=== PATIENT | male | born 1995 | race Caucasian/White ===

== ENCOUNTER 2017-07-26 10:42 | Emergency (ER) | payer OTHER ==
[~2017-07-26] VITALS: Ht 180.3 cm; Wt 71.2 kg
[2017-07-26] MEDS ORDERED: NORCO 5-325 TA1 EACH PO (14:37)
== END 2017-07-26 14:44 | disposition home or self-care (01) ==
LOC: ED 10:42
DX: R10.33 Periumbilical pain (principal)
CPT/HCPCS: 76705; 80053; 81001; 83690; 85025; 99284

== ENCOUNTER 2022-02-26 21:09 | Emergency (ER) | payer OTHER ==
[~2022-02-26] VITALS: Ht 180.3 cm; Wt 104.0 kg
[~2022-02-26 21:09] MED LIST: NORCO 5-325 TA1 EACH PO
[2022-02-26] MEDS ORDERED: PAROXETINE HCL20 MG PO (21:30)
[2022-02-26] MEDS ORDERED: ONDANSETRON ODT8 MG PO (22:24)
[2022-02-27] MEDS ORDERED: REGLAN10 MG PO (23:04)
== END 2022-02-26 22:36 | disposition home or self-care (01) ==
LOC: ED 21:09
DX: R10.9 Unspecified abdominal pain (principal); R11.2 Nausea with vomiting, unspecified; Z79.899 Other long term (current) drug therapy
CPT/HCPCS: 74176; 80053; 81001; 83690; 83735; 85025; 99284-25; A9270

== ENCOUNTER 2022-02-27 21:02 | Emergency (ER) | payer OTHER ==
[~2022-02-27] VITALS: Ht 180.3 cm; Wt 105.2 kg
[~2022-02-27 21:02] MED LIST changes: +ONDANSETRON ODT8 MG PO; +PAROXETINE HCL20 MG PO
--- OUTSIDE RECORDS SUMMARY | 2022-02-27 21:08 | XMS ---
PreManage Notification: KRISTEL LOPEZ Security Resident Care Aide Events No recent Security Events currently on file CRITERIA MET - [facility] - 2 Visits in 30 Days CARE PROVIDERS There are no care providers on record at this time. Sandra has no Care Guidelines for this patient. Se[place] VISIT COUNT ([address] [facility] [place]. TOTAL 2 NOTE: Visits indicate total known visits. ED[place] [place]ACK[place] (12 MO.) 02/27/2022 21:[address] [facility] [place] TYPE: Emergency COMPLAINT: - VOMITING 02/26/2022 21:10 [facility] [place] TYPE: Emergency COMPLAINT: - NAUSEA, LOWER ABD AND BACK PAIN INPATIENT VISIT TRACKING (12 MO.) No inpatient visits to display in this time frame [email or web address]
[2022-02-27] MEDS ORDERED: REGLAN10 MG PO (23:04)
== END 2022-02-27 23:14 | disposition home or self-care (01) ==
LOC: ED 21:02
DX: R11.2 Nausea with vomiting, unspecified (principal); Z79.899 Other long term (current) drug therapy
CPT/HCPCS: 36415; 80053; 83690; 85025; 99283